=== PATIENT | female | born 1955 | race Caucasian/White ===

== ENCOUNTER 2018-06-13 09:00 | Inpatient (IN) | payer BC ==
[2018-06-13] MEDS ORDERED: THROMBIN (BOVINE) 20,000 UNIT VIAL TP ONE (10:59)
[2018-06-13] MEDS ORDERED: SURGIFLO MATRIX KIT WITH THROMBIN 8 ML TP ONE (10:59)
[2018-06-13] MEDS ORDERED: CHLORHEXIDINE GLUC HIBICLENS 118 ML BTL TP ONE (11:00)
[2018-06-13] MEDS ORDERED: BACITRACIN 50,000 UNITS/10 ML SYR IRR ONE (11:00)
[2018-06-13] MEDS ORDERED: ceFAZolin 2 GM/DEXTROSE 100 ML IV ONE (11:47)
[2018-06-13] MEDS ORDERED: GABAPENTIN 300 MG CAP PO ONE (11:47)
[2018-06-13] MEDS ORDERED: ACETAMINOPHEN 500 MG TAB PO ONE (11:47)
[2018-06-13] MEDS ORDERED: LR 1,000 ML IV ONE (11:48)
[2018-06-13] MEDS ORDERED: LIDOCAINE 1% 2 ML INJ ID PRN (11:48)
--- NOTE | 2018-06-13 12:30 | PDHPUP ---
History & Physical Update H&P update statement: This history and physical update is based on an assessment of the patient which was completed after admission or registration (within 24 hours), but prior to the surgery/procedure. H&P update: H&P reviewed & patient examined, no change in patient's condition since H&P completed (Consents signed and site marked. All questions answered.)
[2018-06-13] MEDS ORDERED: MIDAZOLAM 2 MG/2 ML VIAL ONE (12:32)
[2018-06-13] MEDS ORDERED: MIDAZOLAM 2 MG/2 ML VIAL IVP ONE (12:42)
--- NOTE | 2018-06-13 12:43 | PDANEPAE ---
ANE History of Present Illness C4-7 ACDF ANE Past Medical History - Cardiovascular History Hx Hypertension: No Hx Arrhythmias: No Hx Chest Pain: No Hx Coronary Artery / Peripheral Vascular Disease: No Hx CHF / Valvular Disease: No Hx Palpitations: No - Pulmonary History Hx COPD: No Hx Asthma/Reactive Airway Disease: No Hx Recent Upper Respiratory Infection: No Hx Oxygen in Use at Home: No Hx Sleep Apnea: No Sleep Apnea Screening Result - Last Documented: Negative - Neurologic History Hx Cerebrovascular Accident: No Hx Seizures: No Hx Dementia: No - Endocrine History Hx Diabetes: No - Renal History Hx Renal Disorders: No - Liver History Hx Hepatic Disorders: No - Neurological & Psychiatric Hx Hx Neurological and Psychiatric Disorders: No - Cancer History Hx Cancer: No - Congenital Disorder History Hx Congenital Disorders: No - GI History Hx Gastrointestinal Disorders: No - Other Health History Other Health History: CERVICAL STENOSIS - Chronic Pain History Chronic Pain: Yes (N/T SALVADOR HANDS) - Surgical History Prior Surgeries: LT RTC 2017. RT KNEE SCOPE. TONSILLECTOMY. HYSTERECTOMY ANE Review of Systems Review of systems is: negative Review of Systems: - Exercise capacity METS (RN): 4 METS ANE Patient History - Allergies Allergies/Adverse Reactions: No Known Allergies Allergy (Unverified 06/06/18 15:47) - Home Medications Home medications: home medication list seen and reviewed Home Medications: Estrogen Vaginal Ring ONCE 06/01/18 [Last Taken Unknown] - NPO status NPO Since - Liquids (Date): 06/13/18 NPO Since - Liquids (Time): 08:30 NPO Since - Solids (Date): 06/12/18 NPO Since - Solids (Time): 22:00 - Anes Hx Anes Hx: no prior problems - Smoking Hx Smoking Status: Never smoked - Family Anes Hx Family Anes Hx: none ANE Labs/Vital Signs - Vital Signs Vital Signs: reviewed preoperatively; see RN documention for details Blood Pressure: 138/84 Heart Rate: 62 Respiratory Rate: 16 O2 Sat (%): 98 Height: 165.1 cm Weight: 62.596 kg ANE Physical Exam - Airway Neck exam: FROM Mallampati Score: Class 1 Mouth exam: normal dental/mouth exam - Pulmonary Pulmonary: no respiratory distress - Cardiovascular Cardiovascular: regular rate and rhythym - ASA Status ASA Status: I ANE Anesthesia Plan Anesthesia Plan: general endotracheal anesthesia
[2018-06-13] MEDS ORDERED: ROCURONIUM 50 MG/5 ML VIAL ONE (12:50)
[2018-06-13] MEDS ORDERED: ONDANSETRON 4 MG/2 ML VIAL ONE ×3 (12:50→17:05)
[2018-06-13] MEDS ORDERED: HYDROmorphONE/DILAUDID 2 MG/ML INJ ONE (12:50)
[2018-06-13] MEDS ORDERED: REMIFENTANIL HCL 1 MG VIAL ONE (12:50)
[2018-06-13] MEDS ORDERED: LIDOCAINE 2% 100 MG/5 ML SYR ONE (12:50)
[2018-06-13] MEDS ORDERED: fentaNYL 100 MCG/2 ML INJ ONE (12:50)
[2018-06-13] MEDS ORDERED: DEXAMETHASONE 4 MG/ML VIAL ONE (12:50)
[2018-06-13] MEDS ORDERED: PROPOFOL/EMULSION 500 MG/50 ML BOTTLE IV ONE (12:52)
[2018-06-13] MEDS ORDERED: PROPOFOL 200 MG/20 ML VIAL ONE (12:52)
[2018-06-13] MEDS ORDERED: oxyCODONE IR 5 MG TAB PO PRN ×2 (13:00→14:24)
[2018-06-13] MEDS ORDERED: NS 1,000 ML IV SCH (13:00)
[2018-06-13] MEDS ORDERED: ONDANSETRON 4 MG/2 ML VIAL IVP PRN (13:00)
[2018-06-13] MEDS ORDERED: POLYETHYLENE GLYCOL 3350 17 GM PKT PO PRN (13:00)
[2018-06-13] MEDS ORDERED: LACTULOSE 20 GM/30 ML UDCUP PO PRN (13:00)
[2018-06-13] MEDS ORDERED: diphenhydrAMINE 25 MG CAP PO PRN (13:00)
[2018-06-13] MEDS ORDERED: ONDANSETRON DISINTEGRATING 4 MG TAB PO PRN (13:00)
[2018-06-13] MEDS ORDERED: BISACODYL 10 MG SUPP PR PRN (13:00)
[2018-06-13] MEDS ORDERED: MAGNESIUM HYDROXIDE 30 ML UDCUP PO PRN (13:00)
[2018-06-13] MEDS ORDERED: METHOCARBAMOL 1,000 MG in NS 50 ML IV ONE (13:05)
[2018-06-13] MEDS ORDERED: HYDROCODONE/APAP 5/325 TAB PO PRN (14:24)
[2018-06-13] MEDS ORDERED: PROMETHAZINE HCL 25 MG/ML INJ IVP PRN (14:24)
[2018-06-13] MEDS ORDERED: ACETAMINOPHEN 500 MG TAB PO PRN (14:24)
[2018-06-13] MEDS ORDERED: HYDROmorphONE/DILAUDID 1 MG/ML INJ IVP PRN (14:24)
[2018-06-13] MEDS ORDERED: MEPERIDINE 25 MG/0.5 ML AMP IVP PRN (14:24)
[2018-06-13] MEDS ORDERED: DEXAMETHASONE 4 MG/ML VIAL IVP PRN (14:24)
[2018-06-13] MEDS ORDERED: NALOXONE HCL 0.4 MG/ML INJ IVP PRN (14:24)
[2018-06-13] MEDS ORDERED: fentaNYL 100 MCG/2 ML INJ IVP PRN (14:24)
--- NOTE | 2018-06-13 14:31 | POSTANESTH ---
Post Anesthetic Evaluation Cardiovascular Status: Normal, Stable, Similar to Pre-Op Cond Respiratory Status: Normal, Stable, Similar to Pre-op Cond. Level of Consciousness/Mental Status: Can Participate in Eval, Mildly Sleepy, Arousable Pain Control: Adequate, Prn Tx Ordered Nausea/Vomiting Control: Adequate, Prn Tx Ordered Complications Possibly Related to Anesthesia: None Noted
--- NOTE | 2018-06-13 15:24 | PDMN ---
Medical Necessity [place] [facility] [place] Cervical [place], 62 y/o s/p multilevel (3 levels) [id number] cervical fusion, anterior, CPT 26660 IP only.
--- NOTE | 2018-06-13 15:50 | POSTOPPROG ---
Post Op Note Date of Operation: 06/13/18 Surgeon: Balwinder Christian Sound Recording Technician: RAJEEV Hendricks Anesthesia: GET(General Endotracheal) Pre-op Diagnosis: cervical stenosis Post-op Diagnosis: cervical stenosis Indication: cervical stenosis Procedure: ACDF C4-7 Inf/Abcess present in the surg proc area at time of surgery?: No EBL: Minimal PA Addendum - Addendum .: S: Denies any pain O: NAD A&OX3 MAEX4 5/5 = BUE and BLE. Incision C/D/I A/P 62F s/p ACDF C5-7 -Post op xrays pending -Advance diet as tolerated -Optimize pain management -Hard collar at all times other than shower -DVT prophx: TEDs, SCDs, Lovenox okay POD3 -Please notify NS with any change in neuro/motor exam
[2018-06-13] MEDS: ONDANSETRON 4 MG/2 ML VIAL IVP PRN ×2 (16:03→17:05)
--- NOTE | 2018-06-13 16:40 | GOP ---
DATE OF OPERATION: 06/13/2018 SURGEON: Balwinder Christian MD JUICE MIXER: RAJEEV Neri ANESTHESIA: General. PREOPERATIVE DIAGNOSIS: 1. C4-C7 cervical spondylosis with stenosis. 2. Myelopathy. 3. Treatment refractory to nonoperative intervention. POSTOPERATIVE DIAGNOSIS: 1. C4-C7 cervical spondylosis with stenosis. 2. Myelopathy. 3. Treatment refractory to nonoperative intervention. PROCEDURE PERFORMED: 1. Anterior arthrodesis with approach to C4, C5, C6, and C7. 2. C4-C5 diskectomy with bilateral foraminotomies, osteophytectomies, and interbody fusion using a 6 x 14 x 11 mm titanium coated PEEK cage filled with morselized autograft and allograft. 3. C5-C6 diskectomy with bilateral foraminotomies, osteophytectomies, and interbody fusion using a 6 x 14 x 11 mm titanium coated PEEK cage filled with morselized autograft and allograft. 4. C6-C7 diskectomy with bilateral foraminotomies, osteophytectomies, and interbody fusion using a 6 x 14 x 11 mm titanium coated PEEK cage filled with morselized autograft and allograft. 5. Anterior cervical fusion C4, C5, C6, and C7 with a 55 mm [employer] [place] translational plate. 6. Use of intraoperative fluoroscopy, less than 1 hour physician time. 7. Use of neuromonitoring. 8. Use of the operative microscope. FINDINGS: per imaging SPECIMENS: None. 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 She had evidence of mild malacia and her spinal cord with severe stenosis. After discussion of the risks, benefits, and treatment alternatives, we decided to proceed with surgery as described above. DESCRIPTION OF PROCEDURE: The patient was brought to operating theater and underwent general endotracheal anesthesia without complications. She had Venodynes, RADHA hose, and the appropriate lines placed by Anesthesia. She was maintained supine on the operating table with her head in slight extension. All bony processes were inspected and padded. Using lateral fluoroscopy and a spinal needle, we picked our entry point to the C4 through C7 levels. This was marked as a transverse incision on the right side of her neck. This area was prepped and draped in the usual sterile surgical fashion. A time-out was completed per protocol and the patient received antibiotics within 1 hour of incision. The incision was taken down with the scalpel blade. Then using monopolar, the incision was taken down through subcutaneous tissue to the level of the platysma. The platysma was over-mined in the cranial and caudal directions. A Weitlaner was placed to maintain exposure. We opened the fibers of the platysma cranially and caudally. Using both blunt and sharp dissection, we traveled in a plane medial to the carotid sheath and lateral to the esophagus and trachea to reach the prevertebral fascia. We elevated the longus coli muscle from the anterior vertebral bodies of C4, C5, C6, and C7 and confirmed our level using lateral fluoroscopy. We brought the microscope into the field to assist with microscopic dissection and to maintain illumination and magnification. We moved up to C4-C5 where we placed a [place] pin in C4 and C5 and placed C4-C5 into mild distraction. We completed a C4-C5 diskectomy with bilateral foraminotomies and osteophytectomies. We prepared the cartilaginous endplates and measured interbody space. We then placed a 6 x 14 x 11 mm titanium coated PEEK cage filled with morselized autograft and allograft into the C4-C5 disk. We removed the [place] pin from C4, placed it into C6, and placed C5-C6 into mild distraction. We completed a C5-C6 diskectomy with bilateral foraminotomies and osteophytectomies. We prepared the cartilaginous endplates and measured interbody space. We then placed a 6 x 14 x 11 mm titanium coated PEEK cage filled with morselized autograft and allograft into the C5, C6 disk space. We removed the [place] pin from C5, placed it in C7, and placed C6-C7 into mild distraction. We completed a C6-C7 diskectomy with bilateral foraminotomies and osteophytectomies. We prepared the cartilaginous endplates and measured the interbody space. We placed a 6 x 14 x 11 mm titanium coated PEEK cage with morselized autograft and allograft in the C6-7 disk space. We removed the [place] pins and drilled down the anterior osteophytes and secured a 55 mm [employer] [place] translational plate onto the vertebral bodies of C4, C5, C6, and C7. AP and lateral x-rays demonstrated good placement of the hardware. The wound was irrigated copiously with bacitracin irrigation. The wound was then closed in multiple layers, including Vicryl sutures for the deep layers and Dermabond for the skin. The patient's wounds were dressed sterilely. She was awakened, extubated, and taken to recovery room stable condition. There were no complications and no noted changes on neuromonitoring throughout the procedure. COMPLICATION: None. /[id number]/MODL MTDD
[2018-06-13] MEDS: ACETAMINOPHEN 500 MG TAB PO SCH ×5 (17:40→22:17)
[2018-06-13] MEDS: CYCLOBENZAPRINE 10 MG TAB PO SCH ×2 (17:52→22:16)
[2018-06-13] MEDS: ceFAZolin 2 GM/DEXTROSE 100 ML IV SCH (20:20)
[2018-06-13] MEDS: FAMOTIDINE 20 MG TAB PO SCH (20:41)
[2018-06-13] MEDS: SENNOSIDES/DOCUSATE SODIUM TAB PO SCH (20:41)
[2018-06-14] MEDS: ceFAZolin 2 GM/DEXTROSE 100 ML IV SCH (05:25)
[2018-06-14] MEDS: ACETAMINOPHEN 500 MG TAB PO SCH ×3 (05:33→21:27)
[2018-06-14] MEDS: SENNOSIDES/DOCUSATE SODIUM TAB PO SCH ×2 (08:08→21:28)
[2018-06-14] MEDS: CYCLOBENZAPRINE 10 MG TAB PO SCH ×3 (08:08→21:27)
[2018-06-14] MEDS: FAMOTIDINE 20 MG TAB PO SCH ×2 (08:09→21:27)
--- NOTE | 2018-06-14 08:18 | NEUSURGPN ---
Date of Surgery: 06/13/18 Post Op Day: 1 Assessment/Plan: Assessment: 62F s/p ACDF C5-7 POD#1 Plan: -Post op xrays pending -Advance diet as tolerated, speech to see for swallowing -Optimize pain management -Patient with some difficulty swallowing this am, will give 2 doses IV 4mg Decadron today -Hard collar at all times other than shower -DVT prophx: TEDs, SCDs, Lovenox okay POD3 -Patient was discussed and seen by Dr Christian as well -Please notify NS with any change in neuro/motor exam Subjective: Hoarse voice, not happy with her nursing care Objective: AxO x3 Ambulating in room 5/5 BUE Dressing CDI Collar in place Neuro Check Frequency: per routine Urinary Catheter in Place: No - Physician Discussed Patient with : Gino Patient Seen by : Gino Neurosurgery Physical Exam - Vitals, I&O, Labs I and O 06/13/18 06/14/18 06/15/18 05:59 05:59 05:59 Intake Total 2370 Output Total 1575 Balance 795 Weight 62.596 kg Intake: Oral (ml) 470 IV Intake (ml) 1700 IV Infused (ml) 200 ceFAZolin 2 GM/DEXTROSE 200 100 ml @ 200 mls/hr IV Q8H [facility] Rx#:[id number] Output: Urine (ml) 1550 Toilet 1550 Estimated Blood Loss (ml) 25 Other: Number of Voids Toilet 1 Vital Signs Temp Pulse Resp BP Pulse Ox 36.4 C 97 14 126/67 H 93 06/14/18 08:00 06/14/18 08:00 06/14/18 08:00 06/14/18 08:00 06/14/18 08:00 ICD10 Worksheet Patient Problems: Problems Problem Status Onset Cervical stenosis of spine Acute - ICD10 Problem Qualifiers (1) Cervical stenosis of spine
[2018-06-14] MEDS: DEXAMETHASONE 4 MG/ML VIAL IVP SCH ×2 (09:17→13:06)
--- NOTE | 2018-06-14 19:47 | ASMTCMCOM ---
CM Note CM Note Notes: Pt had surgery for cervical stenosis. Pt resides in [place] with spouse. Pt d/c plan is to stay in [place] until safe to fly home. Pt has friend and husb to provide 24/hr supervision. OT rec home, PT rec home/outpatient, MEDICAL CLERICAL ASSISTANT rec home. No CM d/c needs identified. Anticipate pt will d/c when medically stable. CM available for changes/needs. Date Signed: 06/14/2018 04:24 PM Electronically Signed By:JOSEPH Avila
[2018-06-15] MEDS: ACETAMINOPHEN 500 MG TAB PO SCH (06:01)
--- NOTE | 2018-06-15 07:38 | NEUSURGPN ---
Assessment/Plan: Assessment: 62F s/p ACDF C5-7 POD#2 Plan: -Post op xrays demonstrate intact hardware -Advance diet as tolerated, speech to see for swallowing -Optimize pain management -Tolerating liquids/soft foods -Hard collar at all times other than shower and eating -DVT prophx: TEDs, SCDs, Lovenox okay POD3 -Patient was discussed and seen by Dr Christian as well -Please notify NS with any change in neuro/motor exam Subjective: Hoarse voice, pain tolerable. Tolerating soft foods and liquids Objective: AxO x3 5/5 BUE and equal. Incision CDI Collar in place - Physician Patient Seen by DrBlanca: Gino Neurosurgery Physical Exam - Vitals, I&O, Labs I and O 06/14/18 06/15/18 06/16/18 05:59 05:59 05:59 Intake Total 2370 1480 Output Total 1575 Balance 795 1480 Weight 62.596 kg Intake: Oral (ml) 470 1480 IV Intake (ml) 1700 IV Infused (ml) 200 ceFAZolin 2 GM/DEXTROSE 200 100 ml @ 200 mls/hr IV Q8H [facility] Rx#:[id number] Output: Urine (ml) 1550 Toilet 1550 Estimated Blood Loss (ml) 25 Other: Intake Quantity Yes Sufficient Number of Voids Toilet 1 2 Vital Signs Temp Pulse Resp BP Pulse Ox 36.5 C 74 16 123/72 H 96 06/15/18 04:00 06/15/18 04:00 06/15/18 04:00 06/15/18 04:00 06/15/18 04:00 ICD10 Worksheet Patient Problems: Problems Problem Status Onset Cervical stenosis of spine Acute
[2018-06-15 07:58] VITALS: BP 110/69
[2018-06-15] MEDS: CYCLOBENZAPRINE 10 MG TAB PO SCH (08:29)
[2018-06-15] MEDS: FAMOTIDINE 20 MG TAB PO SCH (08:29)
[2018-06-15] MEDS: SENNOSIDES/DOCUSATE SODIUM TAB PO SCH (08:29)
--- NOTE | 2018-06-15 12:23 | ASMTLACE ---
LACE Length of stay for Answers: 3 days current admission Acuity / Level of Answers: Yes Care: Did the patient have an inpatient admission? Comorbidities - select Answers: Opioid dependence all that apply / Chronic pain # of Emergency department Answers: 0 visits in the last 6 months Score: 10 Date Signed: 06/15/2018 12:10 PM Electronically Signed By:JOSEPH Avila
[2018-06-16] MEDS ORDERED: ENOXAPARIN 40 MG/0.4 ML SYR SC SCH (09:00)
[2018-07-31] MEDS ORDERED: [UNRECOGNIZED DRUG - OTHER] VG SCH (08:30)
== END 2018-06-15 10:35 | disposition home or self-care (01) | DRG 473 ==
LOC: F3N 09:56
PROVIDERS: ADMIT Neurological Surgery; ATTEND Neurological Surgery
PROC: 0RB10ZZ Excision of Cervical Vertebral Joint, Open Approach (ICD-10-PCS; principal; 2018-06-13 13:15)
PROC: 4A1004G Monitoring of Central Nervous Electrical Activity, Intraoperative, Open Approach (ICD-10-PCS; principal; 2018-06-13 13:15)
PROC: 0RG20A0 Fusion of 2 or more Cervical Vertebral Joints with Interbody Fusion Device, Anterior Approach, Anterior Column, Open Approach (ICD-10-PCS; principal; 2018-06-13 13:15)
PROC: 8E0WXBZ Computer Assisted Procedure of Trunk Region (ICD-10-PCS; principal; 2018-06-13 13:15)
DX: M47.12 Other spondylosis with myelopathy, cervical region (principal); M48.02 Spinal stenosis, cervical region; J38.3 Other diseases of vocal cords
CPT/HCPCS: 92526-GN; 92610-GN; 97161-GP; 97166-GO; C1713; J0690; J1100; J1170; J2001; J2250; J2405; J2704; J2800; J3010

== ENCOUNTER → 2018-07-27 | Outpatient (CLI) | payer BC | LOC: FIMAGING 11:11 | PROVIDERS: ATTEND Physician Assistant Surgical | DX: Z47.89 Encounter for other orthopedic aftercare (principal); Z98.1 Arthrodesis status ==